=== PATIENT | female | born 1965 | race Two or more races ===

== ENCOUNTER 2016-10-10 08:15 | Outpatient (CLI) | payer BC ==
[2016-10-11 08:09] LABS: VIT D, 25-HYDROXY 20.6 ng/mL (30.0-100.0)
[2016-10-11 11:09] LABS: HEPATITIS C VIRUS AB <0.1 s/co ratio (0.0-0.9)
== END 2016-10-10 23:59 | disposition home or self-care (01) ==
LOC: LAB 08:15
PROVIDERS: ATTEND Family Medicine
DX: Z11.59 Encounter for screening for other viral diseases (principal); E55.9 Vitamin D deficiency, unspecified
CPT/HCPCS: 36415; 82306; 86706; 86709-TC; 86803